=== PATIENT | female | born 1985 | race Caucasian/White ===

== ENCOUNTER 2017-06-13 07:42 | Emergency (ER) | payer MEDICAID ==
[~2017-06-13] VITALS: Ht 167.6 cm; Wt 90.7 kg
--- NOTE | 2017-06-13 07:42 | NUR ---
Pt was placed in bed 7 with complaints of chest pain and SOB, pt states chest pain started last night at 2230, achy pain that is righ tin the middle, denies radiating to arms, denies fever, had n/v all night, unknown episodes. Pt states that sometimes it feels like she stops breathing. Pt ambulated into the ER with no noted difficulty, was able to communicate with full sentences, no noted difficulty breathing. Pt states pain is not as achy as last night. Pt states has anxiety. No other injuries/complaints per pt or noted.
[2017-06-13 07:49] VITALS: BP_SYST 139
--- NOTE | 2017-06-13 07:50 | NUR ---
HARITHA Grimes at bedside examining patient.
[2017-06-13] MEDS ORDERED: ONDANSETRON HCL 4 MG/2 ML VIAL IVP ONE (08:30)
[2017-06-13] MEDS ORDERED: NACL 0.9% 1,000 ML IV ONE (08:30)
[2017-06-13 08:33] LABS: BASOPHILS # (AUTO) 0.5 K/uL (0.0-0.2); BASOPHILS % (AUTO) 4.9 % (0.0-2.0); HEMOGLOBIN 12.5 g/dL (12.0-16.0); LYMPHOCYTES # (AUTO) 3.8 K/uL (1.0-5.5); LYMPHOCYTES % (AUTO) 34.5 % (20.5-51.5); MEAN CORPUSCULAR HEMOGLOBIN 31 pg (27-31); MEAN CORPUSCULAR HGB CONC 33 % (32-36); MEAN CORPUSCULAR VOLUME 93 fL (79.0-98.0); MONOCYTES # (AUTO) 0.2 K/uL (0.0-1.0); MONOCYTES % (AUTO) 1.6 % (1.7-9.3); NEUTROPHILS # (AUTO) 6.5 K/uL (1.8-7.7); PLATELET COUNT (AUTO) 251 K/uL (130-430); RED BLOOD CELL COUNT(AUTO) 4.11 MIL/uL (4.2-6.2)
[2017-06-13 08:36] LABS: CALCIUM 9.6 mg/dL (8.4-11.0); CREATININE 0.75 mg/dL (0.55-1.30); POTASSIUM 4.7 mmol/L (3.5-5.1)
[2017-06-13 08:41] LABS: ALBUMIN 3.9 g/dL (3.4-4.8); TOTAL BILIRUBIN 0.5 mg/dL (0.0-1.0)
--- NOTE | 2017-06-13 08:50 | NUR ---
Pt is resting in bed with no noted distress or discomfort.
--- NOTE | 2017-06-13 09:10 | NUR ---
Pt states pain has decreased to 0/10, resting comfortably
[2017-06-13 09:19] LABS: BILIRUBIN,URINE NEGATIVE (NEGATIVE); BLOOD, URINE NEGATIVE (NEGATIVE); CLARITY/URINE CLEAR (CLEAR); COLOR,URINE YELLOW (YELLOW); GLUCOSE,URINE NEGATIVE (NEGATIVE); KETONES,URINE TRACE (NEGATIVE); LEUKOCYTE ESTERASE ,URINE NEGATIVE (NEGATIVE); NITRITE, URINE NEGATIVE (NEGATIVE); PROTEIN URINE TRACE (NEGATIVE); UROBILINOGEN,URINE 0.2 (0.2-1.0)
[2017-06-13 09:25] LABS: BACTERIA,URINE FEW /HPF (None Seen); MUCUS,URINE 1+ /LPF (None Seen); RBC,URINE 0-3 /HPF (0-3); WBC,URINE 0-3 /HPF (0-3)
--- NOTE | 2017-06-13 09:30 | NUR ---
US is at bedside
--- NOTE | 2017-06-13 09:47 | NUR ---
Patient given written and verbal discharge instructions and verbalizes understanding. ER MD discussed with patient the results and treatment provided. Patient in stable condition. ID arm band removed. IV catheter removed intact and dressing applied, no active bleeding. No Rx given. Patient educated on pain management and to follow up with PMD. Pain Scale 0. Opportunity for questions provided and answered.
[2017-06-13 10:20] VITALS: BP_SYST 114
== END 2017-06-13 09:47 | disposition home or self-care (01) ==
LOC: SED 07:42
DX: K80.70 Calculus of gallbladder and bile duct without cholecystitis without obstruction (principal); K80.80 Other cholelithiasis without obstruction; E66.9 Obesity, unspecified; Z68.32 Body mass index [BMI] 32.0-32.9, adult
CPT/HCPCS: 36415; 71010; 76700; 80053; 81000; 81025; 83690; 84484; 85025; 85379; 93005; 96361; 96374; 99285; J2405; J7030